=== PATIENT | female | born 1955 | race American Indian/Alaskan Native ===

== ENCOUNTER 2019-01-15 11:37 | Emergency (ER) | payer OTHER ==
[2019-01-15 12:13] VITALS: BP 138/76
--- NOTE | 2019-01-15 12:15 | Emergency Department Report ---
Blank Doc - Documentation Documentation: 63 y o female presents with worsening cough causing some chest discomfort x cou ple of days cc of congestion, hx of asthma no meds at home , cxr ACC eval
--- NOTE | 2019-01-15 12:33 | XRay Report ---
CHEST XRAY, 2 VIEWS: History: Upper respiratory infection. Findings: There is mild diffuse interstitial coarsening. The lungs are hyperexpanded but clear. No infiltrate, pleural fluid or pneumothorax is detected. The cardiac silhouette and pulmonary vasculature are within normal limits for technique. The bony thorax is unremarkable. IMPRESSION: Changes consistent with COPD. No acute cardiopulmonary process.
--- NOTE | 2019-01-15 15:40 | Emergency Department Report ---
ED General Adult HPI - General Chief complaint: Upper Respiratory Infection Stated complaint: CHEST PAIN/SINUS Time Seen by Provider: 01/15/19 12:11 Source: patient Mode of arrival: Ambulatory Limitations: No Limitations - History of Present Illness Initial comments: Patient is a 63-year-old female who states that she is here because "my asthma my sinuses are bothering me real bad". Patient started having symptoms last night. Patient states she's had a cough and congestion. States her mucous is clear. Patient states she does not have an inhaler at this time. Patient has pain just above the nose as very congested. Patient denies any fevers chills nausea vomiting diarrhea at this time. Severity scale (0 -10): 6 - Related Data Previous Rx's Medication Instructions Recorded Last Taken Type ALBUTEROL Inhaler(NF) [VENTOLIN 2 puff IH Q4HRT #1 inha 01/15/19 Unknown Rx Inhaler(NF)] Amoxicillin/Potassium Clav 1 each PO BID #14 tablet 01/15/19 Unknown Rx [Augmentin 875-125 Tablet] Benzonatate [Tessalon Perles] 100 mg PO Q8HR #10 capsule 01/15/19 Unknown Rx predniSONE [Deltasone] 20 mg PO QDAY #5 tab 01/15/19 Unknown Rx Allergies Allergy/AdvReac Type Severity Reaction Status Date / Time No Known Allergies Allergy Unverified 01/15/19 11:37 ED Review of Systems ROS: Stated complaint: CHEST PAIN/SINUS Other details as noted in HPI Comment: All other systems reviewed and negative ED Past Medical Hx - Past Medical History Hx Asthma: Yes - Surgical History Additional Surgical History: C/S - Social History Smoking Status: Current Every Day Smoker Substance Use Type: Marijuana - Medications Home Medications: Home Medications Medication Instructions Recorded Confirmed Last Taken Type ALBUTEROL Inhaler(NF) [VENTOLIN 2 puff IH Q4HRT #1 inha 01/15/19 Unknown Rx Inhaler(NF)] Amoxicillin/Potassium Clav 1 each PO BID #14 tablet 01/15/19 Unknown Rx [Augmentin 875-125 Tablet] Benzonatate [Tessalon Perles] 100 mg PO Q8HR #10 capsule 01/15/19 Unknown Rx predniSONE [Deltasone] 20 mg PO QDAY #5 tab 01/15/19 Unknown Rx ED Physical Exam - General Limitations: No Limitations General appearance: alert, in no apparent distress - Head Head exam: Present: atraumatic, normocephalic - Expanded Head Exam Expanded 1 - SINUS TENDERNESS - Eye Eye exam: Present: normal appearance, PERRL, EOMI - ENT ENT exam: Present: normal orophraynx, mucous membranes moist - Neck Neck exam: Present: normal inspection - Respiratory Respiratory exam: Present: normal lung sounds bilaterally. Absent: respiratory distress, wheezes, rales, rhonchi, stridor - Cardiovascular Cardiovascular Exam: Present: regular rate, normal rhythm, normal heart sounds. Absent: systolic murmur, diastolic murmur, rubs, gallop - GI/Abdominal GI/Abdominal exam: Present: soft, normal bowel sounds. Absent: distended, tenderness, guarding, rebound, rigid - Extremities Exam Extremities exam: Present: normal inspection - Back Exam Back exam: Present: normal inspection - Neurological Exam Neurological exam: Present: alert, oriented X3 - Psychiatric Psychiatric exam: Present: normal affect, normal mood - Skin Skin exam: Present: warm, dry, intact, normal color. Absent: rash ED Course Vital Signs 01/15/19 12:11 Temperature 98.1 F Pulse Rate 95 H Respiratory 16 Rate Blood Pressure 138/76 O2 Sat by Pulse 98 Oximetry ED Medical Decision Making - Medical Decision Making Should to be started on Augmentin for acute sinusitis. Patient also to be given meds for symptomatically relief of her cough cold and congestion discharge home. Critical care attestation.: If time is entered above; I have spent that time in minutes in the direct care of this critically ill patient, excluding procedure time. ED Disposition Clinical Impression: Acute sinusitis Qualifiers: Sinusitis location: ethmoidal Recurrence: recurrent Qualified Code(s): J01.21 - Acute recurrent ethmoidal sinusitis Upper respiratory infection Qualifiers: URI type: unspecified URI Qualified Code(s): J06.9 - Acute upper respiratory infection, unspecified Disposition: - TO HOME OR SELFCARE Is pt being admited?: No Does the pt Need Aspirin: No Condition: Stable Instructions: Sinusitis (ED) Referrals: [facility], MD [Primary Care Provider] - 3-5 Days Time of Disposition: 15:38
== END 2019-01-15 15:47 | disposition home or self-care (01) ==
LOC: ED 11:37
DX: J01.21 Acute recurrent ethmoidal sinusitis (principal); J06.9 Acute upper respiratory infection, unspecified; J45.909 Unspecified asthma, uncomplicated; F17.200 Nicotine dependence, unspecified, uncomplicated; F12.10 Cannabis abuse, uncomplicated
CPT/HCPCS: 71046; 99283